=== PATIENT | male | born 1970 | race Caucasian/White ===

== ENCOUNTER 2016-05-24 06:57 | Inpatient (IN) | payer OTHER ==
[~2016-05-24] VITALS: Ht 185.4 cm; Wt 127.0 kg
[~2016-05-24 06:57] MED LIST: 12 HOUR DECONG120 M1 PO; ALEVE220 MG PO; ASPIR-LOW81 MG PO; CLARITIN,ALAVAR10 MG PO; DRISDOL50000 UNIT PO; ESGIC 50-325-41 EAC1 PO; FLONASE16 G1 BOTH NARES; LEXAPRO10 MG PO; MOTRIN400 MG PO; OMEPRAZOLE40 M1 PO; PERCOCET 5/31 TABLET PO; PREDNISONE10 MG PO; SUMATRIPTA6 MG/0.5 M SC; TRAZODONE HCL50 MG PO; VERAPAMIL HCL120 MG PO; VERAPAMIL HCL240 MG PO; WELCHOL3.75 GM PO; XANAX0.25 MG PO
[2016-05-24 07:32] VITALS: BP 128/78
[2016-05-24 07:41] LABS: POINT-OF-CARE METER ID UU14174212
[2016-05-24 07:58] LABS: AMPHETAMINES QUANT VALUE 0 NG/ML; BARBITUATES QUANT VALUE 0 NG/ML; BENZODIAZEPINES QUANT VALUE 0 NG/ML; BENZODIAZEPINES, URINE SCREEN Negative (200 ng/mL); MARIJUANA QUANT VALUE 0 NG/ML; OPIATES QUANTITATIVE VALUE 0 NG/ML; PHENCYCLIDINE QUANT VALUE 0 NG/ML
[2016-05-24 12:44] VITALS: BP 160/70
[2016-05-24 19:36] VITALS: BP 128/84
[2016-05-24 23:35] VITALS: BP 145/78
[2016-05-25 00:02] LABS: POINT-OF-CARE METER ID UU14162508
[2016-05-25 03:43] VITALS: BP 133/73
[2016-05-25 05:43] LABS: POINT-OF-CARE METER ID UU14162508
[2016-05-25 07:00] VITALS: BP 130/77
[2016-05-25 07:38] LABS: HEMATOCRIT 34.8 % (38.0-50.0); MCV 93.8 FL (86-99); MEAN PLAT.VOLUME 10.7 uM^3 (9.0-12.4); PLATELET COUNT 322 K/uL (156-360); RBC DIS.WIDTH-CV 12.4 % (11.8-14.6); RBC DIS.WIDTH-SD 42.6 % (39-53)
[2016-05-25] MEDS ORDERED: HYDROCODON-ACE1 EAC7 PO (07:40)
[2016-05-25 07:42] LABS: RED BLOOD COUNT 3.71 M/uL (4.00-5.50); WHITE BLOOD COUNT 14.5 K/uL (4.1-10.2)
[2016-05-25 07:59] LABS: ANION GAP 11 MEQ/L (2-14); CHLORIDE 100 MEQ/L (99-109); GFR ESTIMATE (CALCULATED) > 59 mL/min/; GLUCOSE 133 mg/dL (70-99); MAGNESIUM 1.8 mg/dl (1.3-2.7); POTASSIUM 4.2 MEQ/L (3.7-5.4); SAMPLE HEMOLYSIS CHECK 0; SAMPLE ICTERIC CHECK 0; SAMPLE LIPEMIA CHECK 0; SODIUM 136 MEQ/L (136-147); UREA NITROGEN (BUN) 10 mg/dL (9-23)
[2016-05-25 11:42] VITALS: BP 153/80
[2016-05-25 12:16] LABS: POINT-OF-CARE METER ID UU14162508
[2016-05-25 16:14] VITALS: BP 146/76
== END 2016-05-25 17:52 | disposition home or self-care (01) | DRG 621 ==
LOC: 2SOUTH 06:57 → 2EASTP 12:42 → 2SOUTH 13:32 → SDC 14:58 → EDSTATUS 15:00 → 2SOUTH 15:05 → 2EASTP 05-25 17:52
PROVIDERS: Surgery
DX: E66.01 Morbid (severe) obesity due to excess calories (principal); Z68.39 Body mass index [BMI] 39.0-39.9, adult; E78.5 Hyperlipidemia, unspecified; G47.33 Obstructive sleep apnea (adult) (pediatric); K21.9 Gastro-esophageal reflux disease without esophagitis; K76.9 Liver disease, unspecified; E73.9 Lactose intolerance, unspecified; E83.119 Hemochromatosis, unspecified; F17.210 Nicotine dependence, cigarettes, uncomplicated; F17.220 Nicotine dependence, chewing tobacco, uncomplicated; Z99.89 Dependence on other enabling machines and devices; Z23 Encounter for immunization
CPT/HCPCS: 80048; 80306 90; 82948; 83735; 84100; 85027; 88307; 88312; 88313; J0131; J0330; J0690; J1100; J1170; J1644; J1650; J1815; J1885; J2250; J2270; J2405; J2710; J2765; J3010; J3480; J7120; S0020